=== PATIENT | male | born 1975 | race Caucasian/White ===

== ENCOUNTER 2016-06-28 18:43 | Emergency (ER) | payer OTHER ==
--- NOTE | 2016-06-28 19:50 | DIAGNOSTIC IMAGING REPORT ---
PROCEDURE: XR CHEST 1 VIEW INDICATION: CHEST PAIN TECHNIQUE: Single view chest. 1913 hours COMPARISON: None. FINDINGS: The cardiomediastinal contour and central vasculature are normal. The lungs are clear without focal consolidation, pleural effusion or pneumothorax. The osseous structures are intact. IMPRESSION: 1. No evidence of acute cardiopulmonary disease.
--- NOTE | 2016-06-28 20:38 | ED CLINICAL REPORT ---
Clinical Report - Physicians/Mid Levels [facility] [address] [place] [address] 06/28/2016 18:45 [facility] [address] [id number] Time Seen: 18:52; upon arrival, initial patient contact, initial documentation, patient care assumed. Arrived- By private vehicle. Historian- patient. HISTORY OF PRESENT ILLNESS Chief Complaint: CHEST PAIN and DISCOMFORT. At its maximum, severity described as severe. When seen in the E.D., severity described as moderate. Modifying factors. Not worsened by anything. Not relieved by anything. This started last night and is still present. It was abrupt in onset and has been intermittent. Onset during sleep; started last night around 0100. It is described as burning and "pain" and feels like gas and it is described as located in the central chest area. No radiation. The patient has had difficulty breathing, nausea and vomiting. The vomiting has occurred only once and has experienced diaphoresis. No additional chest pain. Similar symptoms previously: None. Recent medical care: Not recently seen/assessed. REVIEW OF SYSTEMS No cough. All systems otherwise negative, except as recorded above. PAST HISTORY See nurses notes. PROBLEMS: Tinnitus. Benign Positional Vertigo. Hypertension. Heart Disease. --18:55 Mya Gr R.N. SOCIAL HISTORY Heavy tobacco smoker. Never smoker. Occasional alcohol use. History of occasional drug use: marijuana. No recent travel. Is a local resident. He lives with spouse. FAMILY HISTORY Diabetes in first-degree relative (mother). ADDITIONAL NOTES The nursing notes have been reviewed with agreement regarding the chief complaint, HPI, ROS, PMH and patient medications and allergies. PHYSICAL EXAM Appearance: Alert. Oriented X3. No acute distress. Eyes: Pupils equal, round and reactive to light. Eyes normal inspection. Neck: Normal inspection. Neck supple. CVS: Normal heart rate and rhythm. Heart sounds normal. Pulses normal. Respiratory: No respiratory distress. Breath sounds normal. Chest nontender. Abdomen: Severely obese (morbid). Back: Normal external inspection. Skin: Skin warm and dry. Normal skin color. No rash. Normal skin turgor. Extremities: Extremities exhibit normal ROM. No lower extremity edema. Neuro: Oriented X 3. No motor deficit. No sensory deficit. LABS, X-RAYS, AND EKG EKG: EKG time: (1900). No acute process. No acute ischemia. Normal EKG. Rate: 98. RBBB. T wave inversion. Changes present when compared to prior EKG. The study has been interpreted contemporaneously by me (and dr gill). The EKG appears to be a good tracing. Interpretation time: 1902. Chest X-ray: Normal Chest X-Ray. (IMPRESSION: 1. No evidence of acute cardiopulmonary disease. Electronically Final signed by:Maren Hammond MD 06/28/2016 7:46:17 PM). The X-rays were interpreted by the radiologist and contemporaneously by me. Laboratory Tests: CBC w Diff: (TEA: 06/28/2016 19:00) ( [facility] 06/28/2016 19:08) Final results Test Result Flag Units (Reference) WHITE BLOOD COUNT 15.8 H K/uL (4.5-11.5) RED BLOOD COUNT 5.10 M/uL (4.50-5.90) HEMOGLOBIN 15.7 gm/dL (13.5-17.5) HEMATOCRIT 46.9 % (41.0-53.0) MEAN CELL VOLUME 92 fL (80-100) MEAN CORPUSCULAR HGB 31 pg (26-34) MEAN CORPUSCULAR HGB CONC 33 g/dL (31-37) RED CELL DISTRIBUTION WIDTH 13.9 % (11.6-14.8) PLATELET COUNT 250 K/uL (150-400) NEUTROPHIL % 68.1 % (50-75) LYMPH % 26.7 % (25-40) MONO % 4.0 % (3-14) EOSINOPHIL % 0.9 % (0-4) BASOPHIL % 0.3 % (0-2) CPK: (TEA: 06/28/2016 20:48) ( MsgRcvd 06/28/2016 21:40) Final results Test Result Flag Units (Reference) CPK 222 U/L (24-260) TROPONIN I 0.66 ng/mL (0.00-1.5) TROPONIN REFERENCE RANGE:<0.1 NEGATIVE0.1-1.5 INDETERMINANT>1.5 POSITIVE CMP: (TEA: 06/28/2016 19:00) ( MsgRcvd 06/28/2016 19:32) Final results Test Result Flag Units (Reference) GLUCOSE 132 H mg/dL (70-110) BUN 14 mg/dL (7-18) CREATININE 1.1 mg/dL (0.6-1.3) Estimated GFR >60 mL/min Estimated GFR- >60 mL/min Note: Persistent reduction over 3 months in eGFR<60 mL/min/1.73 m2 defines CKD. Patients with eGFR values>=60 mL/min/1.73 m2 may also have CKD if evidence ofpersistent proteinuria. Additional information may be foundat www.kidney.org. SODIUM 140 mmol/L (136-145) POTASSIUM 3.6 mmol/L (3.5-5.1) CHLORIDE 104 mmol/L (98-107) CARBON DIOXIDE 23 mmol/L (21-32) CALCIUM 8.7 mg/dL (8.5-10.1) TOTAL PROTEIN 7.9 g/dL (6.4-8.2) ALBUMIN 3.6 g/dL (3.3-5.0) BILIRUBIN, TOTAL 0.3 mg/dL (0.0-1.0) ALKALINE PHOSPHATASE 115 U/L (46-116) AST (SGOT) 34 U/L (15-37) ALT (SGPT) 42 U/L (12-78) CPK 240 U/L (24-260) TROPONIN I 0.59 ng/mL (0.00-1.5) TROPONIN REFERENCE RANGE:<0.1 NEGATIVE0.1-1.5 INDETERMINANT>1.5 POSITIVE . PROGRESS AND PROCEDURES Course of Care: 1950. pt updated with current test results and need for transfer for cardiac tele obs and further testing [place] full, Prov full, so having net developer software engineer c try other local hospitals 2029. spoke to transfer nurse and Dr. Kaylene Guadalupe, Tool Turret Lathe Set Up Operator at [facility], beds available and Dr Guadalupe agreed with the transfer/admit, but would like pt to go [place] where cardiac care was at, transfer nurse to speak with hospitalist solution architect and call us back Dr. Gill aware of pt upon arrival, and updated with transfer status, current labs and pt care spoke to Dr. Gonsales, hospitalist at [facility], agreed with transfer, transfer nurse to call us back with room number, agreed to call her back if troponin levels increased pt aware of transfer to [facility], cp gone, pt watching tv and resting comfortably 2100. pt and dr gill updated with transfer to [facility] 2104. nurse reporting pt refusing morphine since he is pain free 22:44 06/28/16. transport ems on way here, still awaiting room number at [facility] 22:47 06/28/16. transfer form completed 23:19 06/28/16. als transport team here, no room number yet, Dr. Mehta aware of situation and report given, he will assume care if needed. 06/28/2016 21:45 BP: 122/79. HR: 86. RR: 12. O2 saturation: 95%. Pain level now: 0/10. Vital Signs: have been reviewed as normal and appear to be correct. Patient counseled in person regarding the patient's stable condition, diagnosis and need for additional testing, admission and transfer. Differential Diagnosis: I considered muscle strain, costochondritis, myositis, pleurisy, myocardial infarction, intermediate coronary syndrome, unstable angina, angina, aortic dissection, mitral valve prolapse, pericarditis, pulmonary embolism, pneumonia, lung cancer, gastroesophageal reflux disease, esophagitis and esophageal spasm as a possible cause of chest pain in this patient. This is a partial list of diagnoses considered. Disposition: Benefits, risks and alternatives to transfer explained to patient. Transferred to [facility]. Summary of care provided to transport team and transfer facility. 21:11. CLINICAL IMPRESSION New onset stable angina. (Electronically signed by Carline Bishop A.R.N.P. 06/29/2016 11:56)
--- NOTE | 2016-06-28 20:38 | ED NURSING NOTES ---
Clinical Report - Nurses [facility] [address] [place] [address] 06/28/2016 18:45 [facility] [id number] Triage time 18:51. Acuity: LEVEL 3. Chief Complaint: CHEST PAIN. Alert. No acute distress. KEITH COMA SCORE: Keith Coma Scale: 15- eyes open spontaneously (4); best verbal response- oriented x 4 (5); best motor response- obeys commands (6). --19:04 Mya Gr R.N. 18:51 06/28/16. BP: 145/69. HR: 94. RR: 17. O2 saturation: 94% on room air. Temp: 98.1 F. Pain level now: 09/21. --19:04 Mya Gr R.N. Weight: 174.6 kg stated. Height/Length: 74 inches Per Patient. BMI: 49.5. --19:02 Mya Gr R.N. Medications Depakote Oral. --18:53 Mya Gr R.N. SEROquel Oral. --18:53 Mya Gr R.N. Prazosin HCl Oral. PROzac Oral. --19:00 Mya Gr R.N. RisperDAL Oral. --19:00 Mya Gr R.N. Ventolin HFA Inhalation. --19:01 Mya Gr R.N. The following entry was struck by Mya Gr R.N., 19:01 (06/28/16) Reason - other. <<STRICKEN ENTRY-- Resparidone . --18:53 Mya Gr R.N. --END STRIKE>>. Medication/allergy information source: the patient's family. --19:04 Mya Gr R.N. Allergies No Known Drug Allergy. --19:01 Mya Gr R.N. History Arrived by private vehicle. Historian: patient. Accompanied by family. Primary physician (Tanner). This started today. Onset. (0100). Reports experiencing sweating episodes. He has had vomiting. SOCIAL HX: Heavy tobacco smoker- less than 1 pack per day. Occasional alcohol use. History of drug use: marijuana. FALL RISK ASSESSMENT: Fall risk assessment completed. No fall risk identified. FUNCTIONAL ASSESSMENT: Functional assessment: no impairments noted. LEARNING NEEDS ASSESSMENT: The learning needs assessment revealed no barriers. --19:04 Mya Gr R.N. PROBLEMS: Tinnitus. Benign Positional Vertigo. Hypertension. Heart Disease. --18:55 Mya Gr R.N. ADDITIONAL SURGERIES: no known surgeries. Assessment GENERAL / NEURO / PSYCH: Alert. Oriented X 4. Appears in no acute distress. Patient appears calm and cooperative. RESPIRATORY: Respirations not labored. SKIN: Skin is warm and dry. --19:04 Mya Gr R.N. Interventions ID band on patient. To treatment room. --19:04 Mya Gr R.N. PHYSICAL ASSESSMENT 18:57 06/28/16. Ambulatory to room. Patient gowned. GENERAL / NEURO / PSYCH: Alert. Oriented X 4. Appears in no acute distress. RESPIRATORY: Respirations not labored. SKIN: Skin is warm and dry. --18:57 Mya Gr R.N. NURSING PROGRESS NOTES 18:57 06/28/16. Oxygen administered by nasal cannula at 2 liters. monitoring specialist, pulse oximeter and NIBP monitor placed on patient. Patient gowned. Head of bed elevated. Call light placed in reach. Side rails up x 1. Bed placed in lowest position. Brakes of bed on. --18:57 Mya Gr R.N. 19:04 06/28/2016 Aspirin PO Tablets 325 mg given. Allergies verified and confirmed 5 rights. (by Nishi CORDOVA). --19:04 Mya Gr R.N. <<STRICKEN ENTRY-- 19:05 06/28/2016 Site #1 started via IV in the right antecubital space with an 20g angiocath, with aseptic technique and good blood return; one attempt. Blood drawn: rainbow set. Labeled in the presence of the patient and sent to the lab. Saline lock flushed with 10 mL saline. --19:05 Mya Gr R.N. --END STRIKE>> Change to Details. --19:05 Mya Gr R.N. 19:05 06/28/2016 Site #1 started via IV in the right antecubital space with an 20g angiocath, with aseptic technique and good blood return; one attempt. Blood drawn: rainbow set. Labeled in the presence of the patient and sent to the lab. Saline lock flushed with 10 mL saline (by Megan CORDOVA). --19:05 Mya Gr R.N. 19:10 06/28/2016 GI COCKTAIL WHITE (Simethicone) PO 30 mL given. Allergies verified and confirmed 5 rights. --19:15 Nishi Glasgow R.N. 19:15 06/28/2016 Nitroglycerin SL 0.4 mg given. Allergies verified and confirmed 5 rights. --19:15 Nishi Glasgow R.N. 19:20 06/28/2016 Nitroglycerin SL 0.4 mg given. Allergies verified and confirmed 5 rights. --19:20 Nishi Glasgow R.N. 19:17 06/28/16. BP: 122/78. HR: 98. RR: 17. O2 saturation: 95% on room air. Pain level now: 410. --19:20 Nishi Glasgow R.N. 19:25 06/28/16. Overall patient status- he states feels better. CVS: Denies chest pain. --19:25 Nishi Glasgow R.N. 19:59 06/28/16. BP: 114/69. HR: 88. RR: 20. O2 saturation: 97% on nasal cannula at 2 liters/minute. Pain level now: 0/10. --20:00 Nishi Glasgow R.N. 21:45 06/28/16. BP: 122/79. HR: 86. RR: 12. O2 saturation: 95% on room air. Pain level now: 0/10. --21:46 Nishi Glasgow R.N. 21:46 06/28/16. The patient reports no complaints and he is calm and resting quietly. Overall patient status- he states feels better. CVS: Denies chest pain. --21:46 iNshi Glasgow R.N. 01:14 06/29/2016 Site #[address] upon transfer; patent, no pain and no signs of infection or infiltration. Flushed with 10 mL saline; flushes easily. --01:14 Nishi Glasgow R.N. DISPOSITION / DISCHARGE 23:07 06/28/16. BP: 141/86. HR: 71. RR: 18. O2 saturation: 96% on nasal cannula at 2 liters/minute. Temp: 98.6 F (oral). Pain level now: 0/10. --23:08 Nishi Glasgow R.N. Condition at departure: stable. Transferred to [facility]. Summary of care provided to transport team and transfer facility. Transported via ambulance by nurse with monitor and defibrillator. Report was given to a nurse via a phone call. Report included patient's care, treatment, medications, reviewed medication reconcilliation, and condition (including any recent changes or anticipated changes). All questions were answered. Report was acknowledged and care was transferred. Patient's personal items include: shirt, pants, socks, shoes, wallet and cell phone; items were placed in belongings bag, given to the patient and transported with the patient. --01:03 Nishi Glasgow R.N. Departure time: 01:14 Jun 29 2016. --01:14 Nishi Glasgow R.N. 01:14 06/29/16. BP: 134/85. HR: 86. RR: 12. O2 saturation: 96% on room air. Pain level now: 0/10. --01:14 Nishi Glasgow R.N. Locked/Released at 06/29/2016 1:15 by Nishi Glasgow R.N.
--- NOTE | 2016-06-28 20:38 | ED ORDER SUMMARY ---
..... Patient: [facility]ENE [facility] [facility] [id number] [place] [address] 40y, M Registration Date/Time: 06/28/2016 ORDER SHEET Weight: 174.6 kg (stated) Allergies: No Known Drug Allergy GENERAL ORDERS: Payloader Machine Operator (Continuous) (18:58 06/28/2016 HBivens A.R.N.P.) (19:03 MWinterer R.N.) Chest 1V Urgent (18:58 06/28/2016 HBivens A.R.N.P.) (Ack 19:08 RKaruga) (19:15 MWinterer R.N.) CBC w Diff Urgent (18:59 06/28/2016 HBivens A.R.N.P.) (19:04 Yasmeen R.N.) CMP Urgent (18:59 06/28/2016 HBivens A.R.N.P.) (19:04 Yasmeen R.N.) Oxygen (2 L/min) (NC) (18:59 06/28/2016 HBivens A.R.N.P.) (19:03 MWinterer R.N.) EKG - ER Stat (18:59 06/28/2016 HBivens A.R.N.P.) (19:04 MWinterer R.N.) CPK Urgent (19:14 06/28/2016 HBivens A.R.N.P.) (19:24 MWinterer R.N.) Troponin-I Urgent (19:14 06/28/2016 HBivens A.R.N.P.) (19:24 MWinterer R.N.) CPK Urgent (19:50 06/28/2016 HBivens A.R.N.P.) (Ack 19:53 IJurca ER Tech1) (Sent 21:04 IJurca ER Tech1) (21:46 MWinterer R.N.) Troponin-I Urgent (19:50 06/28/2016 HBivens A.R.N.P.) (Ack 19:53 IJurca ER Tech1) (Sent 21:04 IJurca ER Tech1) (21:46 MWinterer R.N.) MEDICATION ORDERS: Aspirin PO 325 mg (Do not crush or chew, NOW) (18:58 06/28/2016 HBivens A.R.N.P.) (19:04 Yasmeen R.N.) GI Cocktail WHITE PO 30 mL with Lidocaine Viscous Mouth/Throat 15 mL, Maalox Plus Oral 15 mL (NOW) (19:00 06/28/2016 HBivens A.R.N.P.) (Ack 19:07 MWinterer R.N.) (19:15 MWinterer R.N.) NitroGLYCERIN SL 0.4 mg (Do not crush or chew, NOW, x3 PRN Chest Pain) (19:03 06/28/2016 HBivens A.R.N.P.) (Ack 19:07 MWinterer R.N.) (19:15 MWinterer R.N.) IV FLUIDS: IV Saline Lock (18:59 06/28/2016 HBivens A.R.N.P.) (19:05 Yasmeen R.N.) Morphine IV 2 mg (HIGH ALERT MEDICATION, NOW) (21:00 06/28/2016 HBivens A.R.N.P.) (Ack 21:42 MWinterer R.N.) (Cancelled: Patient [id number] MWinterer R.N.) ORDER SHEET NOTES: [Electronically signed by Nishi Glasgow R.N. (01:15 06/29/2016)] [Electronically signed by Carline BishopR.N.P. (11:56 06/29/2016)] [Electronically locked/signed by Nishi Glasgow R.N. (01:15 06/29/2016)]
--- NOTE | 2016-06-28 20:38 | ED CLINICAL REPORT ---
Clinical Report - Physicians/Mid Levels [facility] [address] [place] [address] 06/28/2016 18:45 [facility] [id number] Time Seen: 18:52; upon arrival, initial patient contact, initial documentation, patient care assumed. Arrived- By private vehicle. Historian- patient. HISTORY OF PRESENT ILLNESS Chief Complaint: CHEST PAIN and DISCOMFORT. At its maximum, severity described as severe. When seen in the E.D., severity described as moderate. Modifying factors. Not worsened by anything. Not relieved by anything. This started last night and is still present. It was abrupt in onset and has been intermittent. Onset during sleep; started last night around 0100. It is described as burning and "pain" and feels like gas and it is described as located in the central chest area. No radiation. The patient has had difficulty breathing, nausea and vomiting. The vomiting has occurred only once and has experienced diaphoresis. No additional chest pain. Similar symptoms previously: None. Recent medical care: Not recently seen/assessed. REVIEW OF SYSTEMS No cough. All systems otherwise negative, except as recorded above. PAST HISTORY See nurses notes. PROBLEMS: Tinnitus. Benign Positional Vertigo. Hypertension. Heart Disease. --18:55 Mya Gr R.N. SOCIAL HISTORY Heavy tobacco smoker. Never smoker. Occasional alcohol use. History of occasional drug use: marijuana. No recent travel. Is a local resident. He lives with spouse. FAMILY HISTORY Diabetes in first-degree relative (mother). ADDITIONAL NOTES The nursing notes have been reviewed with agreement regarding the chief complaint, HPI, ROS, PMH and patient medications and allergies. PHYSICAL EXAM Appearance: Alert. Oriented X3. No acute distress. Eyes: Pupils equal, round and reactive to light. Eyes normal inspection. Neck: Normal inspection. Neck supple. CVS: Normal heart rate and rhythm. Heart sounds normal. Pulses normal. Respiratory: No respiratory distress. Breath sounds normal. Chest nontender. Abdomen: Severely obese (morbid). Back: Normal external inspection. Skin: Skin warm and dry. Normal skin color. No rash. Normal skin turgor. Extremities: Extremities exhibit normal ROM. No lower extremity edema. Neuro: Oriented X 3. No motor deficit. No sensory deficit. LABS, X-RAYS, AND EKG EKG: EKG time: (1900). No acute process. No acute ischemia. Normal EKG. Rate: 98. RBBB. T wave inversion. Changes present when compared to prior EKG. The study has been interpreted contemporaneously by me (and dr gill). The EKG appears to be a good tracing. Interpretation time: 1902. Chest X-ray: Normal Chest X-Ray. (IMPRESSION: 1. No evidence of acute cardiopulmonary disease. Electronically Final signed by:Maren Hammond MD 06/28/2016 7:46:17 PM). The X-rays were interpreted by the radiologist and contemporaneously by me. Laboratory Tests: CBC w Diff: (TEA: 06/28/2016 19:00) ( [facility] 06/28/2016 19:08) Final results Test Result Flag Units (Reference) WHITE BLOOD COUNT 15.8 H K/uL (4.5-11.5) RED BLOOD COUNT 5.10 M/uL (4.50-5.90) HEMOGLOBIN 15.7 gm/dL (13.5-17.5) HEMATOCRIT 46.9 % (41.0-53.0) MEAN CELL VOLUME 92 fL (80-100) MEAN CORPUSCULAR HGB 31 pg (26-34) MEAN CORPUSCULAR HGB CONC 33 g/dL (31-37) RED CELL DISTRIBUTION WIDTH 13.9 % (11.6-14.8) PLATELET COUNT 250 K/uL (150-400) NEUTROPHIL % 68.1 % (50-75) LYMPH % 26.7 % (25-40) MONO % 4.0 % (3-14) EOSINOPHIL % 0.9 % (0-4) BASOPHIL % 0.3 % (0-2) CPK: (TEA: 06/28/2016 20:48) ( MsgRcvd 06/28/2016 21:40) Final results Test Result Flag Units (Reference) CPK 222 U/L (24-260) TROPONIN I 0.66 ng/mL (0.00-1.5) TROPONIN REFERENCE RANGE:<0.1 NEGATIVE0.1-1.5 INDETERMINANT>1.5 POSITIVE CMP: (TEA: 06/28/2016 19:00) ( MsgRcvd 06/28/2016 19:32) Final results Test Result Flag Units (Reference) GLUCOSE 132 H mg/dL (70-110) BUN 14 mg/dL (7-18) CREATININE 1.1 mg/dL (0.6-1.3) Estimated GFR >60 mL/min Estimated GFR- >60 mL/min Note: Persistent reduction over 3 months in eGFR<60 mL/min/1.73 m2 defines CKD. Patients with eGFR values>=60 mL/min/1.73 m2 may also have CKD if evidence ofpersistent proteinuria. Additional information may be foundat www.kidney.org. SODIUM 140 mmol/L (136-145) POTASSIUM 3.6 mmol/L (3.5-5.1) CHLORIDE 104 mmol/L (98-107) CARBON DIOXIDE 23 mmol/L (21-32) CALCIUM 8.7 mg/dL (8.5-10.1) TOTAL PROTEIN 7.9 g/dL (6.4-8.2) ALBUMIN 3.6 g/dL (3.3-5.0) BILIRUBIN, TOTAL 0.3 mg/dL (0.0-1.0) ALKALINE PHOSPHATASE 115 U/L (46-116) AST (SGOT) 34 U/L (15-37) ALT (SGPT) 42 U/L (12-78) CPK 240 U/L (24-260) TROPONIN I 0.59 ng/mL (0.00-1.5) TROPONIN REFERENCE RANGE:<0.1 NEGATIVE0.1-1.5 INDETERMINANT>1.5 POSITIVE . PROGRESS AND PROCEDURES Course of Care: 1950. pt updated with current test results and need for transfer for cardiac tele obs and further testing [place] full, Prov full, so having slag mixer try other local hospitals 2029. spoke to transfer nurse and Dr. Kaylene Guadalupe, Asphalt Still Operator at [facility], beds available and Dr Guadalupe agreed with the transfer/admit, but would like pt to go [place] where cardiac care was at, transfer nurse to speak with hospitalist lion tamer and call us back Dr. Gill aware of pt upon arrival, and updated with transfer status, current labs and pt care spoke to Dr. Gonsales, hospitalist at [facility], agreed with transfer, transfer nurse to call us back with room number, agreed to call her back if troponin levels increased pt aware of transfer to [facility], cp gone, pt watching tv and resting comfortably 2100. pt and dr gill updated with transfer to [facility] 2104. nurse reporting pt refusing morphine since he is pain free 22:44 06/28/16. transport ems on way here, still awaiting room number at [facility] 22:47 06/28/16. transfer form completed 23:19 06/28/16. als transport team here, no room number yet, Dr. Mehta aware of situation and report given, he will assume care if needed. 06/28/2016 21:45 BP: 122/79. HR: 86. RR: 12. O2 saturation: 95%. Pain level now: 0/10. Vital Signs: have been reviewed as normal and appear to be correct. Patient counseled in person regarding the patient's stable condition, diagnosis and need for additional testing, admission and transfer. Differential Diagnosis: I considered muscle strain, costochondritis, myositis, pleurisy, myocardial infarction, intermediate coronary syndrome, unstable angina, angina, aortic dissection, mitral valve prolapse, pericarditis, pulmonary embolism, pneumonia, lung cancer, gastroesophageal reflux disease, esophagitis and esophageal spasm as a possible cause of chest pain in this patient. This is a partial list of diagnoses considered. Disposition: Benefits, risks and alternatives to transfer explained to patient. Transferred to [facility]. Summary of care provided to transport team and transfer facility. 21:11. CLINICAL IMPRESSION New onset stable angina. (Electronically signed by Carline Bishop A.R.N.P. 06/29/2016 11:56)
--- NOTE | 2016-06-28 20:38 | ED ORDER SUMMARY ---
..... Patient: RENE LANE OrderSheet [facility] VisitID: [id number] [place] [address] 40y, M Registration Date/Time: 06/28/2016 ORDER SHEET Weight: 174.6 kg (stated) Allergies: No Known Drug Allergy GENERAL ORDERS: Oil Recovery Operator (Continuous) (18:58 06/28/2016 HBivens A.R.N.P.) (19:03 MWinterer R.N.) Chest 1V Urgent (18:58 06/28/2016 HBivens A.R.N.P.) (Ack 19:08 RKaruga) (19:15 MWinterer R.N.) CBC w Diff Urgent (18:59 06/28/2016 HBivens A.R.N.P.) (19:04 Yasmeen R.N.) CMP Urgent (18:59 06/28/2016 HBivens A.R.N.P.) (19:04 Yasmeen R.N.) Oxygen (2 L/min) (NC) (18:59 06/28/2016 HBivens A.R.N.P.) (19:03 MWinterer R.N.) EKG - ER Stat (18:59 06/28/2016 HBivens A.R.N.P.) (19:04 MWinterer R.N.) CPK Urgent (19:14 06/28/2016 HBivens A.R.N.P.) (19:24 MWinterer R.N.) Troponin-I Urgent (19:14 06/28/2016 HBivens A.R.N.P.) (19:24 MWinterer R.N.) CPK Urgent (19:50 06/28/2016 HBivens A.R.N.P.) (Ack 19:53 IJurca ER Tech1) (Sent 21:04 IJurca ER Tech1) (21:46 MWinterer R.N.) Troponin-I Urgent (19:50 06/28/2016 HBivens A.R.N.P.) (Ack 19:53 IJurca ER Tech1) (Sent 21:04 IJurca ER Tech1) (21:46 MWinterer R.N.) MEDICATION ORDERS: Aspirin PO 325 mg (Do not crush or chew, NOW) (18:58 06/28/2016 HBivens A.R.N.P.) (19:04 Yasmeen R.N.) GI Cocktail WHITE PO 30 mL with Lidocaine Viscous Mouth/Throat 15 mL, Maalox Plus Oral 15 mL (NOW) (19:00 06/28/2016 HBivens A.R.N.P.) (Ack 19:07 MWinterer R.N.) (19:15 MWinterer R.N.) NitroGLYCERIN SL 0.4 mg (Do not crush or chew, NOW, x3 PRN Chest Pain) (19:03 06/28/2016 HBivens A.R.N.P.) (Ack 19:07 MWinterer R.N.) (19:15 MWinterer R.N.) IV FLUIDS: IV Saline Lock (18:59 06/28/2016 HBivens A.R.N.P.) (19:05 Yasmeen R.N.) Morphine IV 2 mg (HIGH ALERT MEDICATION, NOW) (21:00 06/28/2016 HBivens A.R.N.P.) (Ack 21:42 MWinterer R.N.) (Cancelled: Patient [id number] MWinterer R.N.) ORDER SHEET NOTES: [Electronically signed by Nishi Glasgow R.N. (01:15 06/29/2016)] [Electronically signed by Carline BishopR.N.P. (11:56 06/29/2016)] [Electronically locked/signed by Nishi Glasgow R.N. (01:15 06/29/2016)]
--- NOTE | 2016-06-28 20:38 | ED NURSING NOTES ---
Clinical Report - Nurses [facility] [address] [place] [address] 06/28/2016 18:45 [id number] Triage time 18:51. Acuity: LEVEL 3. Chief Complaint: CHEST PAIN. Alert. No acute distress. KEITH COMA SCORE: Keith Coma Scale: 15- eyes open spontaneously (4); best verbal response- oriented x 4 (5); best motor response- obeys commands (6). --19:04 Mya Gr R.N. 18:51 06/28/16. BP: 145/69. HR: 94. RR: 17. O2 saturation: 94% on room air. Temp: 98.1 F. Pain level now: 09/21. --19:04 Mya Gr R.N. Weight: 174.6 kg stated. Height/Length: 74 inches Per Patient. BMI: 49.5. --19:02 Mya Gr R.N. Medications Depakote Oral. --18:53 Mya Gr R.N. SEROquel Oral. --18:53 Mya Gr R.N. Prazosin HCl Oral. PROzac Oral. --19:00 Mya Gr R.N. RisperDAL Oral. --19:00 Mya Gr R.N. Ventolin HFA Inhalation. --19:01 Mya Gr R.N. The following entry was struck by Mya Gr R.N., 19:01 (06/28/16) Reason - other. <<STRICKEN ENTRY-- Resparidone . --18:53 Mya Gr R.N. --END STRIKE>>. Medication/allergy information source: the patient's family. --19:04 Mya Gr R.N. Allergies No Known Drug Allergy. --19:01 Mya Gr R.N. History Arrived by private vehicle. Historian: patient. Accompanied by family. Primary physician (Tanner). This started today. Onset. (0100). Reports experiencing sweating episodes. He has had vomiting. SOCIAL HX: Heavy tobacco smoker- less than 1 pack per day. Occasional alcohol use. History of drug use: marijuana. FALL RISK ASSESSMENT: Fall risk assessment completed. No fall risk identified. FUNCTIONAL ASSESSMENT: Functional assessment: no impairments noted. LEARNING NEEDS ASSESSMENT: The learning needs assessment revealed no barriers. --19:04 Mya Gr R.N. PROBLEMS: Tinnitus. Benign Positional Vertigo. Hypertension. Heart Disease. --18:55 Mya Gr R.N. ADDITIONAL SURGERIES: no known surgeries. Assessment GENERAL / NEURO / PSYCH: Alert. Oriented X 4. Appears in no acute distress. Patient appears calm and cooperative. RESPIRATORY: Respirations not labored. SKIN: Skin is warm and dry. --19:04 Mya Gr R.N. Interventions ID band on patient. To treatment room. --19:04 Mya Gr R.N. PHYSICAL ASSESSMENT 18:57 06/28/16. Ambulatory to room. Patient gowned. GENERAL / NEURO / PSYCH: Alert. Oriented X 4. Appears in no acute distress. RESPIRATORY: Respirations not labored. SKIN: Skin is warm and dry. --18:57 Mya Gr R.N. NURSING PROGRESS NOTES 18:57 06/28/16. Oxygen administered by nasal cannula at 2 liters. php magento developer, pulse oximeter and NIBP monitor placed on patient. Patient gowned. Head of bed elevated. Call light placed in reach. Side rails up x 1. Bed placed in lowest position. Brakes of bed on. --18:57 Mya Gr R.N. 19:04 06/28/2016 Aspirin PO Tablets 325 mg given. Allergies verified and confirmed 5 rights. (by Nishi CORDOVA). --19:04 Mya Gr R.N. <<STRICKEN ENTRY-- 19:05 06/28/2016 Site #1 started via IV in the right antecubital space with an 20g angiocath, with aseptic technique and good blood return; one attempt. Blood drawn: rainbow set. Labeled in the presence of the patient and sent to the lab. Saline lock flushed with 10 mL saline. --19:05 Mya Gr R.N. --END STRIKE>> Change to Details. --19:05 Mya rG R.N. 19:05 06/28/2016 Site #1 started via IV in the right antecubital space with an 20g angiocath, with aseptic technique and good blood return; one attempt. Blood drawn: rainbow set. Labeled in the presence of the patient and sent to the lab. Saline lock flushed with 10 mL saline (by Megan CORDOVA). --19:05 Mya Gr R.N. 19:10 06/28/2016 GI COCKTAIL WHITE (Simethicone) PO 30 mL given. Allergies verified and confirmed 5 rights. --19:15 Nishi Glasgow R.N. 19:15 06/28/2016 Nitroglycerin SL 0.4 mg given. Allergies verified and confirmed 5 rights. --19:15 Nishi Glasgow R.N. 19:20 06/28/2016 Nitroglycerin SL 0.4 mg given. Allergies verified and confirmed 5 rights. --19:20 Nishi Glasgow R.N. 19:17 06/28/16. BP: 122/78. HR: 98. RR: 17. O2 saturation: 95% on room air. Pain level now: 410. --19:20 Nishi Glasgow R.N. 19:25 06/28/16. Overall patient status- he states feels better. CVS: Denies chest pain. --19:25 Nishi Glasgow R.N. 19:59 06/28/16. BP: 114/69. HR: 88. RR: 20. O2 saturation: 97% on nasal cannula at 2 liters/minute. Pain level now: 0/10. --20:00 Nishi Glasgow R.N. 21:45 06/28/16. BP: 122/79. HR: 86. RR: 12. O2 saturation: 95% on room air. Pain level now: 0/10. --21:46 Nishi Glasgow R.N. 21:46 06/28/16. The patient reports no complaints and he is calm and resting quietly. Overall patient status- he states feels better. CVS: Denies chest pain. --21:46 Nishi Glasgow R.N. 01:14 06/29/2016 Site #[address] upon transfer; patent, no pain and no signs of infection or infiltration. Flushed with 10 mL saline; flushes easily. --01:14 Nishi Glasgow R.N. DISPOSITION / DISCHARGE 23:07 06/28/16. BP: 141/86. HR: 71. RR: 18. O2 saturation: 96% on nasal cannula at 2 liters/minute. Temp: 98.6 F (oral). Pain level now: 0/10. --23:08 Nishi Glasgow R.N. Condition at departure: stable. Transferred to [facility]. Summary of care provided to transport team and transfer facility. Transported via ambulance by nurse with monitor and defibrillator. Report was given to a nurse via a phone call. Report included patient's care, treatment, medications, reviewed medication reconcilliation, and condition (including any recent changes or anticipated changes). All questions were answered. Report was acknowledged and care was transferred. Patient's personal items include: shirt, pants, socks, shoes, wallet and cell phone; items were placed in belongings bag, given to the patient and transported with the patient. --01:03 Nishi Glasgow R.N. Departure time: 01:14 Jun 29 2016. --01:14 Nishi Glasgow R.N. 01:14 06/29/16. BP: 134/85. HR: 86. RR: 12. O2 saturation: 96% on room air. Pain level now: 0/10. --01:14 Nishi Glasgow R.N. Locked/Released at 06/29/2016 1:15 by Nishi Glasgow R.N.
--- NOTE | 2016-06-29 11:57 | ED MED RECONCILIATION SUMMARY ---
Patient: RENE LANE Medication Reconciliation Report [facility] VisitID: [id number] [address] [place] [address] 40y, M Registration Date/Time: 06/28/2016 Weight: 174.6 kg Height/Length: 74 in. BMI: 49.5 ALLERGIES: No Known Drug Allergy The patient's Home Medications are listed below: THE FOLLOWING MEDICATIONS NEED TO BE RECONCILED: Depakote Oral Prazosin HCl Oral PROzac Oral RisperDAL Oral SEROquel Oral Ventolin HFA Inhalation The source(s) of the original Home Medication information: patient's family member The following Medications were given to the patient in the Emergency Department: Aspirin [PO] PO 325 mg, administered: 06/28/2016 7:04:00 PM GI COCKTAIL WHITE [PO] PO 30 mL, administered: 06/28/2016 7:10:00 PM Nitroglycerin [SL] SL 0.4 mg, administered: 06/28/2016 7:15:00 PM Nitroglycerin [SL] SL 0.4 mg, administered: 06/28/2016 7:20:00 PM The following Medications were prescribed to the patient: None.
--- NOTE | 2016-06-29 11:57 | ED MED RECONCILIATION SUMMARY ---
Patient: RENE LANE Medication Reconciliation Report [facility] VisitID: [id number] [address] [place] [address] 40y, M Registration Date/Time: 06/28/2016 Weight: 174.6 kg Height/Length: 74 in. BMI: 49.5 ALLERGIES: No Known Drug Allergy The patient's Home Medications are listed below: THE FOLLOWING MEDICATIONS NEED TO BE RECONCILED: Depakote Oral Prazosin HCl Oral PROzac Oral RisperDAL Oral SEROquel Oral Ventolin HFA Inhalation The source(s) of the original Home Medication information: patient's family member The following Medications were given to the patient in the Emergency Department: Aspirin [PO] PO 325 mg, administered: 06/28/2016 7:04:00 PM GI COCKTAIL WHITE [PO] PO 30 mL, administered: 06/28/2016 7:10:00 PM Nitroglycerin [SL] SL 0.4 mg, administered: 06/28/2016 7:15:00 PM Nitroglycerin [SL] SL 0.4 mg, administered: 06/28/2016 7:20:00 PM The following Medications were prescribed to the patient: None.
--- NOTE | 2016-06-29 11:57 | ED DISCHARGE INSTRUCTIONS ---
Patient: RENE LANE General Instructions [facility] VisitID: [id number] [address] [place] [address] 40y, M Registration Date/Time: 06/28/2016 New onset stable angina. (Electronically signed by Carline Bishop A.R.N.P. 06/29/2016 11:56)
--- NOTE | 2016-06-29 11:57 | ED MAR SUMMARY ---
..... Medication Administration Record [facility] [address] [place] [place] [address] Patient: RENE L[address] Visit ID: [id number] 40y, M Weight: 174.6 kg Height/Length: 74 in BMI: 49.5 ALLERGIES: No Known Drug Allergy Given 19:04 06/28/2016 Mya Gr R.N. Medication Administered: ASPIRIN [PO], Dose: 325 mg Tablets PO. Medication Ordered: Aspirin PO 325 mg (Do not crush or chew, NOW). Given 19:10 06/28/2016 Nishi Glasgow R.N. Medication Administered: GI COCKTAIL WHITE [PO] (SIMETHICONE), Dose: 30 mL PO. Medication Ordered: GI Cocktail WHITE PO 30 mL with Lidocaine Viscous Mouth/Throat 15 mL, Maalox Plus Oral 15 mL (NOW). Given 19:15 06/28/2016 Nishi Glasgow R.NRuben Medication Administered: NITROGLYCERIN [SL], Dose: 0.4 mg SL. Medication Ordered: NitroGLYCERIN SL 0.4 mg (Do not crush or chew, NOW, x3 PRN Chest Pain). Given 19:20 06/28/2016 Nishi Glasgow R.NRuben Medication Administered: NITROGLYCERIN [SL], Dose: 0.4 mg SL. Medication Ordered: NitroGLYCERIN SL 0.4 mg (Do not crush or chew, NOW, x3 PRN Chest Pain).
--- NOTE | 2016-06-29 11:57 | ED MAR SUMMARY ---
..... Medication Administration Record [facility] [address] [place] [address] Patient: RENE L[address] Visit ID: [id number] 40y, M Weight: 174.6 kg Height/Length: 74 in BMI: 49.5 ALLERGIES: No Known Drug Allergy Given 19:04 06/28/2016 Mya Gr R.N. Medication Administered: ASPIRIN [PO], Dose: 325 mg Tablets PO. Medication Ordered: Aspirin PO 325 mg (Do not crush or chew, NOW). Given 19:10 06/28/2016 Nishi Glasgow R.N. Medication Administered: GI COCKTAIL WHITE [PO] (SIMETHICONE), Dose: 30 mL PO. Medication Ordered: GI Cocktail WHITE PO 30 mL with Lidocaine Viscous Mouth/Throat 15 mL, Maalox Plus Oral 15 mL (NOW). Given 19:15 06/28/2016 Nishi Glasgow R.NRuben Medication Administered: NITROGLYCERIN [SL], Dose: 0.4 mg SL. Medication Ordered: NitroGLYCERIN SL 0.4 mg (Do not crush or chew, NOW, x3 PRN Chest Pain). Given 19:20 06/28/2016 Nishi Glasgow R.NRuben Medication Administered: NITROGLYCERIN [SL], Dose: 0.4 mg SL. Medication Ordered: NitroGLYCERIN SL 0.4 mg (Do not crush or chew, NOW, x3 PRN Chest Pain).
--- NOTE | 2016-06-29 11:57 | ED DISCHARGE INSTRUCTIONS ---
Patient: RENE LANE General Instructions [facility] VisitID: [id number] [address] [place] [address] 40y, M Registration Date/Time: 06/28/2016 New onset stable angina. (Electronically signed by Carline Bishop A.R.N.P. 06/29/2016 11:56)
== END 2016-06-29 01:14 | disposition short-term general hospital (02) ==
LOC: ED SRH 18:43
DX: I20.8 Other forms of angina pectoris (principal); I10 Essential (primary) hypertension; F17.210 Nicotine dependence, cigarettes, uncomplicated; F12.10 Cannabis abuse, uncomplicated; Z79.899 Other long term (current) drug therapy
CPT/HCPCS: 90074; 90100; 90616; 92610; 95059